=== PATIENT | female | born 1945 | race African-American/Black ===

== ENCOUNTER 2017-08-29 17:16 | Emergency (ER) | payer MEDICARE ==
[~2017-08-29] VITALS: Ht 162.6 cm; Wt 80.0 kg
[~2017-08-29 17:16] MED LIST: ASPI-867 PO; ATOR20TA65 PO; CLAR10 PO; CLOP75TA16 PO; COR3 PO; ESTR0.6264; FURO-152 PO; IBUP-2030; LISI10TA5 PO; OMEP20CA10 PO; POTA20TA12 PO; TEMA15CA PO
[2017-08-29] MEDS ORDERED: SILVER SULFADIAZINE 1% CREAM 25GM TOP ONE (20:30)
[2017-08-29] MEDS ORDERED: TETANUS, DIPHTHERIA, PERTUSSIS VAC/PF 0.5ML (>7YR OLD) IM ONE (20:30)
[2017-08-29 20:55] VITALS: BP 148/62
== END 2017-08-29 21:00 | disposition home or self-care (01) ==
LOC: ER 18:44
DX: T24.211A Burn of second degree of right thigh, initial encounter (principal); I10 Essential (primary) hypertension; E78.00 Pure hypercholesterolemia, unspecified; Z88.8 Allergy status to other drugs, medicaments and biological substances; Z79.82 Long term (current) use of aspirin; X31.XXXA Exposure to excessive natural cold, initial encounter; Y93.89 Activity, other specified; Y92.89 Other specified places as the place of occurrence of the external cause; Y99.8 Other external cause status
CPT/HCPCS: 16020; 90471; 90715; 99284

== ENCOUNTER 2018-05-10 07:26 | Emergency (ER) | payer MEDICARE ==
[~2018-05-10] VITALS: Ht 162.6 cm; Wt 79.0 kg
[~2018-05-10 07:26] MED LIST changes: +ASA5EC PO; -ASPI-867 PO
[2018-05-10] MEDS ORDERED: TYLENOL 3 (07:45)
[2018-05-10] MEDS ORDERED: ESTRADIOL (07:45)
[2018-05-10] MEDS ORDERED: PREDNISONE (07:45)
[2018-05-10] MEDS ORDERED: MORPHINE SULFATE 4 MG/ML CPJ (NOT FOR IM USE) IV ONE (09:15)
[2018-05-10] MEDS ORDERED: MORPHINE SULFATE 10 MG/ML CPJ IM ONE (09:30)
[2018-05-10 11:44] VITALS: BP 161/71
== END 2018-05-10 11:47 | disposition home or self-care (01) ==
LOC: ER 07:26
DX: M54.5 Low back pain (principal); M25.552 Pain in left hip; M25.562 Pain in left knee; E78.00 Pure hypercholesterolemia, unspecified; I51.9 Heart disease, unspecified; I10 Essential (primary) hypertension; Z90.49 Acquired absence of other specified parts of digestive tract; Z90.89 Acquired absence of other organs; Z90.710 Acquired absence of both cervix and uterus; Z98.890 Other specified postprocedural states; Z98.61 Coronary angioplasty status; Z91.041 Radiographic dye allergy status; Z79.899 Other long term (current) drug therapy
CPT/HCPCS: 72110; 96372; 99283; J2270

== ENCOUNTER 2019-02-22 17:03 | Emergency (ER) | payer MEDICARE ==
[~2019-02-22] VITALS: Ht 162.6 cm; Wt 80.0 kg
[~2019-02-22 17:03] MED LIST changes: -ASA5EC PO; +ASPI325T85 PO; -CLOP75TA16 PO; -ESTR0.6264; +ESTRADIOL; -OMEP20CA10 PO; +OMEP20CA5 PO; +PREDNISONE; +TYLENOL 3
[2019-02-22] MEDS ORDERED: IBUPROFEN 600MG TABLET PO ONE (18:30)
[2019-02-22] MEDS ORDERED: DIPHENHYDRAMINE 25MG CAPSULE PO ONE (18:30)
[2019-02-22 18:34] VITALS: BP 176/69
== END 2019-02-22 18:35 | disposition home or self-care (01) ==
LOC: ER 17:29
DX: S80.862A Insect bite (nonvenomous), left lower leg, initial encounter (principal); W57.XXXA Bitten or stung by nonvenomous insect and other nonvenomous arthropods, initial encounter; Y93.89 Activity, other specified; Y92.89 Other specified places as the place of occurrence of the external cause
CPT/HCPCS: 99283

== ENCOUNTER → 2019-04-11 | Outpatient (CLI) | payer MEDICARE | END | disposition home or self-care (01) | LOC: CT 09:39 | PROVIDERS: ATTEND Internal Medicine | DX: M19.032 Primary osteoarthritis, left wrist (principal) | CPT/HCPCS: 73200 ==

== ENCOUNTER 2021-04-10 10:56 | Emergency (ER) | payer MEDICARE ==
[~2021-04-10] VITALS: Ht 162.6 cm; Wt 73.0 kg
[~2021-04-10 10:56] MED LIST changes: +ASPI-867 PO; -ASPI325T85 PO; +LISI10TA26 PO; -LISI10TA5 PO; +OMEP20CA14 PO; -OMEP20CA5 PO
[2021-04-10] MEDS ORDERED: BACITRACIN ZINC OINT UDPKT TOP ONE (11:45)
[2021-04-10 12:30] VITALS: BP 136/88
[2021-04-10] MEDS ORDERED: MUPIROCIN 2% OINT 22GM TOP SCH (14:00)
== END 2021-04-10 13:19 | disposition home or self-care (01) ==
LOC: ER 10:56
DX: Z48.02 Encounter for removal of sutures (principal)
CPT/HCPCS: 99283

== ENCOUNTER 2021-04-12 13:19 | Emergency (ER) | payer MEDICARE ==
[~2021-04-12] VITALS: Ht 157.5 cm; Wt 64.0 kg
[2021-04-12 16:15] LABS: BASOPHILS % 0.7 % (0.0-2.0); EOSINOPHILS % 2.5 % (0.0-5.0); HEMATOCRIT. 38.2 % (36.0-48.0); LYMPHOCYTES % 21.7 % (20.0-50.0); MEAN CORPUSCULAR HEMOGLOBIN 34.4 pg (28.0-32.0); MEAN CORPUSCULAR VOLUME 101.4 fL (81.0-99.0); MEAN PLATELET VOLUME 9.6 fl (7.4-10.4); MONOCYTES % 4.6 % (2.0-8.0); NEUTROPHILS % 70.5 % (40.0-76.0); PLATELET 140 x1000/uL (130-400); RED BLOOD CELL COUNT 3.77 mill/uL (4.2-5.4); RED CELL DISTRIBUTION WIDTH 14.4 % (11.6-14.6)
[2021-04-12 16:19] LABS: CLARITY URINE CLEAR (CLEAR); COLOR URINE DARK YELLOW (YELLOW); KETONES URINE NEGATIVE (NEGATIVE); LEUKOCYTE ESTERASE URINE NEGATIVE (NEGATIVE); NITRITE URINE NEGATIVE (NEGATIVE); OCCULT BLOOD URINE NEGATIVE (NEGATIVE); PH URINE 5.5 (4.5-8.0); PROTEIN URINE NEGATIVE (NEGATIVE); SPECIFIC GRAVITY URINE 1.023 (1.005-1.030); UROBILINOGEN URINE 0.2 E.U./dL (0.2-1.0)
[2021-04-12 16:27] LABS: CHLORIDE 114 mEq/L (98-107)
[2021-04-12 16:50] LABS: PLATELET ESTIMATE NORMAL
[2021-04-12] MEDS ORDERED: ACETAMINOPHEN 325MG TABLET PO ONE (17:00)
[2021-04-12 17:52] VITALS: BP 137/63
== END 2021-04-12 18:34 | disposition home or self-care (01) ==
LOC: ER 13:19
DX: S76.011A Strain of muscle, fascia and tendon of right hip, initial encounter (principal); W01.0XXA Fall on same level from slipping, tripping and stumbling without subsequent striking against object, initial encounter; Y93.89 Activity, other specified; Y92.89 Other specified places as the place of occurrence of the external cause; Y99.8 Other external cause status
CPT/HCPCS: 36415; 71045; 73502; 73560; 80053; 81003; 85025; 99284

== ENCOUNTER 2023-01-05 17:47 | Emergency (ER) | payer MEDICARE ==
[~2023-01-05] VITALS: Ht 162.6 cm; Wt 79.0 kg
[~2023-01-05 17:47] MED LIST changes: +POTA-194 PO; -POTA20TA12 PO
[2023-01-05 18:22] VITALS: BP 130/52; TEMP 99; O2SAT 100
[2023-01-05 18:23] VITALS: PULSE 76; RESP 18
[2023-01-05] MEDS ORDERED: CEPH500T MT (21:54)
[2023-01-05] MEDS ORDERED: CLIN-194 MT (21:54)
== END 2023-01-05 22:27 | disposition home or self-care (01) ==
LOC: ER 17:47
DX: L02.31 Cutaneous abscess of buttock (principal); I10 Essential (primary) hypertension; E78.00 Pure hypercholesterolemia, unspecified; Z91.041 Radiographic dye allergy status; Z90.49 Acquired absence of other specified parts of digestive tract; Z98.890 Other specified postprocedural states; Z79.899 Other long term (current) drug therapy
CPT/HCPCS: 99283

== ENCOUNTER 2024-12-30 19:05 | Inpatient (IN) | payer MEDICARE ==
[~2024-12-30] VITALS: Ht 162.6 cm; Wt 83.5 kg
[~2024-12-30 19:05] MED LIST changes: +ASPI-1160 PO; +CARV12.545 PO; +CEPH500T MT; +CETI10CA11 PO; +CLIN-194 MT; +COR12 PO; -COR3 PO; +ESTR0.5T2 PO; +FAMO40TA70 PO; +HYDR-4009 PO; +HYDR-459 PO; +IBUP1CAP3 PO; +MONT-46 PO; +NAPR-681 PO; +OXYB5TAB21 PO; +SACU1TAB PO; +T3 PO
[2024-12-30 20:00] VITALS: BP 127/50; PULSE 61; RESP 20; TEMP 36.4; O2SAT 98
[2024-12-30 20:01] VITALS: BP 124/50; PULSE 61; RESP 18; TEMP 36.4736
[2024-12-30] MEDS ORDERED: ONDANSETRON HCL 4MG/2ML INJ IV PRN (21:15)
[2024-12-30] MEDS ORDERED: NALOXONE HCL 0.4MG/ML 1ML VIAL IV PRN (21:15)
[2024-12-30] MEDS ORDERED: IPRATROPIUM/ALBUTEROL 0.5-3(2.5)MG/3ML NEB HHN PRN ×2 (21:15→22:00)
[2024-12-30] MEDS ORDERED: GUAIFENESIN-DM 200MG-20MG/10ML UDC PO PRN (21:15)
[2024-12-30] MEDS ORDERED: ACETAMINOPHEN 325MG TABLET PO PRN (22:05)
[2024-12-30] MEDS ORDERED: MAGNESIUM/ALUMINUM HYDROXIDE/SIMETHICONE 30ML UDC PO PRN (22:06)
[2024-12-31] MEDS: CLONIDINE 0.2MG TABLET PO SCH (05:47)
[2024-12-31] MEDS: ACETAMINOPHEN WITH CODEINE 300/30MG TABLET PO PRN (05:48)
[2024-12-31 08:00] VITALS: BP 107/71; PULSE 66; RESP 18; TEMP 36.7; O2SAT 98
[2024-12-31] MEDS: ASPIRIN 81MG TABLET PO SCH (08:52)
[2024-12-31] MEDS: ENOXAPARIN 40MG/0.4ML SYR SUBCUT SCH (08:53)
[2024-12-31] MEDS: ACETAMINOPHEN 325MG TABLET PO PRN (08:53)
[2024-12-31] MEDS: PANTOPRAZOLE SODIUM 40 MG/VIAL IV SCH (08:53)
[2024-12-31] MEDS: FERROUS SULFATE 325MG TABLET PO SCH (08:53)
[2024-12-31] MEDS: CARVEDILOL 12.5MG TABLET PO SCH (08:54)
[2024-12-31] MEDS: SACUBITRIL/VALSARTAN 24MG/26MG TABLET PO SCH (08:54)
[2024-12-31 13:18] LABS: BASOPHILS % 0.7 % (0.0-2.0); EOSINOPHILS % 2.9 % (0.0-5.0); HEMATOCRIT. 32.9 % (36.0-48.0); HEMOGLOBIN. 11.3 g/dL (12.0-16.0); LYMPHOCYTES % 35.0 % (20.0-50.0); MEAN PLATELET VOLUME 8.5 fl (7.4-10.4); MONOCYTES % 10.5 % (2.0-8.0); NEUTROPHILS % 50.9 % (40.0-76.0); PLATELET 230 x1000/uL (130-400); RED BLOOD CELL COUNT 3.30 mill/uL (4.2-5.4); RED CELL DISTRIBUTION WIDTH 14.2 % (11.6-14.6)
[2024-12-31 13:26] LABS: CREATININE 0.9 mg/dL (0.6-1.0); UREA NITROGEN BLOOD 11 mg/dL (9-23)
[2024-12-31 13:28] LABS: ASPARTATE AMINOTRANSFERASE 58 IU/L (<34); BILIRUBIN TOTAL 0.4 mg/dL (0.1-1.0); PROTEIN TOTAL 6.2 g/dL (6.0-8.3)
[2024-12-31] MEDS: CEFTRIAXONE 1GM/50ML 50 ML IV SCH (16:42)
[2024-12-31] MEDS: BISACODYL 10MG SUPP PR SCH (17:15)
[2024-12-31] MEDS: POLYETHYLENE GLYCOL 3350 (17GM) 1 DOSE PACK PO SCH (18:13)
[2024-12-31] MEDS: HYDRALAZINE 10 MG in SODIUM CHLORIDE 0.9% 50 ML IV NR (18:20)
[2024-12-31 19:44] VITALS: BP 187/80
[2024-12-31 20:00] VITALS: BP 186/66; PULSE 65; RESP 18; TEMP 36.2; O2SAT 97
[2024-12-31] MEDS: ATORVASTATIN CALCIUM 20MG TABLET PO SCH (20:24)
[2024-12-31] MEDS ORDERED: HYDRALAZINE HCL 25MG TABLET PO PRN (21:45)
[2024-12-31] MEDS: FLUTICASONE PROPIONATE 50MCG/SPRAY BOTTLE BOTHNSTRLS PRN (23:30)
[2025-01-01 08:00] VITALS: BP 107/59; PULSE 61; RESP 17; TEMP 36.2; O2SAT 100
[2025-01-01] MEDS: BISACODYL 10MG SUPP PR NR (08:15)
[2025-01-01 08:20] LABS: CREATININE 0.9 mg/dL (0.6-1.0); UREA NITROGEN BLOOD 9 mg/dL (9-23)
[2025-01-01 08:21] LABS: PROTEIN TOTAL 6.2 g/dL (6.0-8.3)
[2025-01-01 08:22] LABS: ASPARTATE AMINOTRANSFERASE 58 IU/L (<34); BILIRUBIN TOTAL 0.5 mg/dL (0.1-1.0)
[2025-01-01] MEDS ORDERED: BISACODYL 10MG SUPP PR PRN (09:30)
[2025-01-01] MEDS: NA PHOS,M-B/NA PHOS,DI-BA ENEMA 118ML PR SCH (09:45)
[2025-01-01 10:44] LABS: BASOPHILS % 1.2 % (0.0-2.0); EOSINOPHILS % 1.8 % (0.0-5.0); HEMATOCRIT. 33.9 % (36.0-48.0); HEMOGLOBIN. 11.4 g/dL (12.0-16.0); LYMPHOCYTES % 25.9 % (20.0-50.0); MEAN PLATELET VOLUME 8.2 fl (7.4-10.4); MONOCYTES % 8.2 % (2.0-8.0); NEUTROPHILS % 62.9 % (40.0-76.0); PLATELET 253 x1000/uL (130-400); RED BLOOD CELL COUNT 3.41 mill/uL (4.2-5.4); RED CELL DISTRIBUTION WIDTH 14.0 % (11.6-14.6)
[2025-01-01 12:08] LABS: FOLIC ACID (FOLATE) SERUM > 20.00 ng/mL (>5.38); VITAMIN B12 SERUM 1330 pg/mL (211-911)
[2025-01-01] MEDS: LACTULOSE 20G/30ML UDC PO SCH (13:06)
[2025-01-01 20:00] VITALS: BP 144/61; PULSE 62; RESP 18; TEMP 36.2; O2SAT 96
[2025-01-01] MEDS: MELATONIN 3MG TABLET PO PRN (20:32)
[2025-01-02] MEDS: PANTOPRAZOLE 40MG DR TABLET PO SCH (06:18)
[2025-01-02 08:00] VITALS: BP 137/47; PULSE 61; RESP 18; TEMP 36.1; O2SAT 97
[2025-01-02] MEDS ORDERED: NA PHOS,M-B/NA PHOS,DI-BA ENEMA 118ML PR PRN (09:00)
[2025-01-02 10:15] VITALS: BP 128/55; PULSE 71; RESP 18; TEMP 36.4; O2SAT 97
[2025-01-02 11:00] VITALS: PULSE 85; RESP 18; TEMP 36.4; O2SAT 98
[2025-01-02 20:00] VITALS: BP 165/70; PULSE 66; RESP 18; TEMP 36.5; O2SAT 98
[2025-01-02] MEDS: CLONIDINE 0.2MG TABLET PO SCH (21:36)
[2025-01-03 08:00] VITALS: BP 142/51; PULSE 59; RESP 18; TEMP 36; O2SAT 98
[2025-01-03] MEDS: LACTULOSE 20G/30ML UDC PO SCH (14:50)
[2025-01-03 20:00] VITALS: BP 128/60; PULSE 65; RESP 19; TEMP 35.6; O2SAT 99
[2025-01-03] MEDS: MELATONIN 3MG TABLET PO SCH (21:21)
[2025-01-04 08:00] VITALS: BP 140/57; PULSE 60; RESP 18; TEMP 36.5; O2SAT 99
[2025-01-04] MEDS: CLONIDINE 0.1MG TABLET PO SCH (09:10)
[2025-01-04 13:20] LABS: BASOPHILS % 0.6 % (0.0-2.0); EOSINOPHILS % 2.6 % (0.0-5.0); HEMATOCRIT. 33.5 % (36.0-48.0); HEMOGLOBIN. 11.4 g/dL (12.0-16.0); LYMPHOCYTES % 39.1 % (20.0-50.0); MEAN PLATELET VOLUME 8.2 fl (7.4-10.4); MONOCYTES % 10.9 % (2.0-8.0); NEUTROPHILS % 46.8 % (40.0-76.0); PLATELET 268 x1000/uL (130-400); RED BLOOD CELL COUNT 3.39 mill/uL (4.2-5.4); RED CELL DISTRIBUTION WIDTH 13.3 % (11.6-14.6)
[2025-01-04 13:42] LABS: CREATININE 0.9 mg/dL (0.6-1.0); UREA NITROGEN BLOOD 10 mg/dL (9-23)
[2025-01-04 13:44] LABS: ASPARTATE AMINOTRANSFERASE 40 IU/L (<34)
[2025-01-04 13:45] LABS: BILIRUBIN TOTAL 0.4 mg/dL (0.1-1.0); PROTEIN TOTAL 6.5 g/dL (6.0-8.3)
[2025-01-04 13:56] LABS: VITAMIN B12 SERUM 1761 pg/mL (211-911)
[2025-01-04 19:50] VITALS: BP 129/53; PULSE 60; RESP 17; TEMP 36.7; O2SAT 98
[2025-01-05 08:00] VITALS: BP 144/43; PULSE 67; RESP 18; TEMP 36.2; O2SAT 100
[2025-01-05] MEDS: HYDROCODONE/ACETAMINOPHEN 5/325MG TABLET PO PRN (09:52)
[2025-01-05] MEDS: FLUTICASONE PROPIONATE 50MCG/SPRAY BOTTLE BOTHNSTRLS PRN (10:03)
[2025-01-05] MEDS ORDERED: ESTR0.5T5 PO (15:41)
[2025-01-05] MEDS ORDERED: SACU1TAB PO (15:43)
[2025-01-05] MEDS ORDERED: NALOXONE HCL 0.4MG/ML VIAL IV PRN (15:45)
[2025-01-05] MEDS ORDERED: TEMA15CA PO (17:48)
[2025-01-05 20:00] VITALS: BP 128/47; PULSE 64; RESP 18; TEMP 36.2; O2SAT 95
[2025-01-05] MEDS: TEMAZEPAM 15MG CAPSULE PO PRN (21:41)
[2025-01-06 08:00] VITALS: BP 108/63; PULSE 76; RESP 17; TEMP 35.7; O2SAT 99
[2025-01-06] MEDS: SODIUM CHLORIDE 45ML SPRAY NS PRN (09:31)
[2025-01-06 20:00] VITALS: BP 131/46; PULSE 63; RESP 18; TEMP 36; O2SAT 97
[2025-01-06] MEDS: CLONIDINE 0.1MG TABLET PO SCH (22:04)
[2025-01-07 08:00] VITALS: BP 121/67; PULSE 69; RESP 16; TEMP 35.6; O2SAT 98
[2025-01-07 20:00] VITALS: BP 131/48; PULSE 63; RESP 18; TEMP 35.4; O2SAT 99
[2025-01-08 08:00] VITALS: BP 140/50; PULSE 63; RESP 18; TEMP 35.6; O2SAT 99
[2025-01-08 10:39] VITALS: BP_SYST 107; BP_SYST 109; BP_SYST 149; BP_DIAS 47; BP_DIAS 54; BP_DIAS 60
[2025-01-08 20:00] VITALS: BP 154/63; PULSE 63; RESP 18; TEMP 36.4; O2SAT 97
[2025-01-09] MEDS ORDERED: POLY17PO43 PO (00:04)
[2025-01-09] MEDS ORDERED: SODI45SP7 NS (00:04)
[2025-01-09] MEDS ORDERED: CLON0.1T PO (00:04)
[2025-01-09] MEDS ORDERED: PANT40TA51 PO (00:04)
[2025-01-09] MEDS ORDERED: FERR-63 PO (00:04)
[2025-01-09 08:00] VITALS: BP 135/57; PULSE 64; RESP 16; TEMP 36.5; O2SAT 97
[2025-01-09 10:09] VITALS: BP 135/57; PULSE 64; RESP 16; TEMP 97.7
[2025-01-09] MEDS ORDERED: HYDR-4001 PO (10:29)
== END 2025-01-09 13:38 | disposition home health service (06) | DRG 70 ==
PROVIDERS: ADMIT Physical Medicine & Rehabilitation Spinal Cord Injury Medicine; ATTEND Internal Medicine
PROC: GZ58ZZZ Individual Psychotherapy, Cognitive-Behavioral (ICD-10-PCS; principal; 2025-01-09)
DX: G93.41 Metabolic encephalopathy (principal); A41.89 Other specified sepsis; I50.20 Unspecified systolic (congestive) heart failure; N17.9 Acute kidney failure, unspecified; N39.0 Urinary tract infection, site not specified; M62.82 Rhabdomyolysis; I67.82 Cerebral ischemia; D64.9 Anemia, unspecified; E11.9 Type 2 diabetes mellitus without complications; E66.811 Obesity, class 1; I11.0 Hypertensive heart disease with heart failure; I25.10 Atherosclerotic heart disease of native coronary artery without angina pectoris; M75.100 Unspecified rotator cuff tear or rupture of unspecified shoulder, not specified as traumatic; M75.01 Adhesive capsulitis of right shoulder; R32 Unspecified urinary incontinence; G89.4 Chronic pain syndrome; R20.0 Anesthesia of skin; R20.2 Paresthesia of skin; M54.50 Low back pain, unspecified; R26.9 Unspecified abnormalities of gait and mobility; K59.00 Constipation, unspecified; G47.00 Insomnia, unspecified; R26.89 Other abnormalities of gait and mobility; K21.9 Gastro-esophageal reflux disease without esophagitis; I25.5 Ischemic cardiomyopathy; E78.00 Pure hypercholesterolemia, unspecified; F41.9 Anxiety disorder, unspecified; R54 Age-related physical debility; Z96.641 Presence of right artificial hip joint; Z90.710 Acquired absence of both cervix and uterus; Z86.16 Personal history of COVID-19; I25.2 Old myocardial infarction; Z79.899 Other long term (current) drug therapy; Z68.31 Body mass index [BMI] 31.0-31.9, adult; Z90.49 Acquired absence of other specified parts of digestive tract; Z91.013 Allergy to seafood; Z91.048 Other nonmedicinal substance allergy status; Z95.5 Presence of coronary angioplasty implant and graft; Z95.810 Presence of automatic (implantable) cardiac defibrillator
CPT/HCPCS: 36415; 80053; 82140; 82306; 82550; 82607; 82728; 82746; 83036; 83540; 83550; 84134; 84443; 85025; 92523; 92610; 94640; 97110; 97112; 97116; 97140; 97162; 97166; 97530; 97535; J0360; J0696; J1650; J2470